=== PATIENT | female | born 1940 | race Caucasian/White ===

== ENCOUNTER 2019-08-24 15:58 | Emergency (ER) | payer MEDICARE ==
[2019-08-24] MEDS ORDERED: Acetaminophen 500 MG TAB ONE (16:58)
[2019-08-24 17:18] LABS: #Basophils 0.1 thou/uL (0.0-0.2); #Eosinphils 0.1 thou/uL (0.0-0.7); #Lymphocytes 0.9 thou/uL (1.20-3.40); #Monocytes 0.5 thou/uL (0.11-0.59); #Neutrophils 8.6 thou/uL (1.40-6.50); %Basophils 1.3 % (0.0-1.0); %Eosinophils 0.7 % (0.0-10.0); %Lymphocytes 9.1 % (21.0-51.0); %Monocytes 5.3 % (0.0-10.0); %Neutrophils 83.6 % (42.0-75.0); Mean Corpuscular HGB CONC 33.4 g/dL (32.0-36.0); Mean Corpuscular Hemoglobin 31.3 pg (27.0-31.0); Mean Corpuscular Volume 93.7 fL (78.0-98.0); Platelet Count 332 thou/uL (130-400); RBC Distribution Width 11.2 % (11.5-14.5); Red Blood Cell (RBC) Count 4.17 mill/uL (4.20-5.40); White Blood Cell (WBC) Count 10.2 thou/uL (4.8-10.8)
--- NOTE | 2019-08-24 17:26 | RAD ---
EXAM: Chest PA and lateral: HISTORY: Cough COMPARISON: None FINDINGS: Heart: Normal cardiac silhouette Aorta: Unremarkable Pulmonary vessels: Mild pulmonary vascular prominence. Costophrenic angles: No significant pleural fluid Lungs: Patchy interstitial opacities throughout the lung parenchyma with a more focal opacity in the right lung apex. Pneumothorax: No pneumothorax Osseous structures: No osseous abnormalities IMPRESSION: Patchy interstitial opacities throughout the lung parenchyma with a more focal right upper lobe opaci ty which may represent alveolar opacification. Continued surveillance is recommended.
[2019-08-24 17:35] LABS: ALT (SGPT) 81 U/L (8-55); AST (SGOT) 60 U/L (5-34); Albumin 3.9 g/dL (3.4-4.8); Alkaline Phosphatase 147 U/L (40-110); Anion Gap 18 mmol/L (10-20); BUN (Urea Nitrogen) 9 mg/dL (9.8-20.1); Bilirubin, Total 0.7 mg/dL (0.2-1.2); Calc. Creatinine Clearance 0 mL/min (70-130); Calcium 9.4 mg/dL (7.8-10.44); Carbon Dioxide 30 mmol/L (23-31); Chloride 94 mmol/L (98-107); Estimated GFR-MDRD 78; Globulin 3.7 g/dL (2.4-3.5); Glucose 115 mg/dL (83-110); Potassium 3.2 mmol/L (3.5-5.1); Protein, Total 7.6 g/dL (6.0-8.3); Sodium 139 mmol/L (136-145)
[2019-08-24] MEDS ORDERED: Lactated Ringer's 1,000 ML ONE (17:39)
[2019-08-24] MEDS ORDERED: Sodium Chloride 0.9% 100 ML ONE (17:39)
[2019-08-24] MEDS ORDERED: cefTRIAXone\\ROCEPHIN 2 GM VIAL ONE (17:39)
[2019-08-24] MEDS ORDERED: Azithromycin 250 MG TAB ONE (17:39)
== END 2019-08-24 18:25 | disposition home or self-care (01) ==
LOC: MADERS 15:58
DX: J15.9 Unspecified bacterial pneumonia (principal); I48.91 Unspecified atrial fibrillation; I10 Essential (primary) hypertension; Z79.01 Long term (current) use of anticoagulants; Z79.899 Other long term (current) drug therapy
CPT/HCPCS: 71046; 80053; 83605; 85025; 87804; 96365; J0696; J3490; J7120

== ENCOUNTER 2023-05-08 13:21 | Emergency (ER) | payer MEDICARE ==
[2023-05-08 14:55] LABS: SARS-CoV-2 NAA Rapid Test Not Detected (NotDetected)
== END 2023-05-08 15:17 | disposition home or self-care (01) ==
LOC: MADERS 13:21
DX: J00 Acute nasopharyngitis [common cold] (principal); I10 Essential (primary) hypertension; I48.91 Unspecified atrial fibrillation; Z20.822 Contact with and (suspected) exposure to COVID-19; Z79.01 Long term (current) use of anticoagulants; Z79.899 Other long term (current) drug therapy
CPT/HCPCS: 71046; 87804; U0002